=== PATIENT | female | born 1995 | race Two or more races ===

== ENCOUNTER 2020-11-18 14:26 | Emergency (ER) | payer MEDICARE ==
[~2020-11-18] VITALS: Ht 170.2 cm; Wt 81.6 kg
[2020-11-18] MEDS ORDERED: KETOROLAC TROMETHAMINE 60 MG/2 ML VIAL IM ONE (14:45)
== END 2020-11-18 15:30 | disposition home or self-care (01) ==
LOC: ER 14:45
DX: R07.9 Chest pain, unspecified (principal); R06.02 Shortness of breath
CPT/HCPCS: 71046; 99283; J1885